=== PATIENT | female | born 1935 | race Caucasian/White ===

== ENCOUNTER 2019-04-17 14:28 | Outpatient (CLI) | payer MEDICARE ==
--- NOTE | 2019-04-17 14:56 | RAD ---
XR Finger(s) Lt Min 2 View HISTORY: Pain in the left middle finger COMPARISON: None. 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 No acute fracture, dislocation or periosteal r eaction is seen. IMPRESSION: No acute process.
== END 2019-04-17 14:29 | disposition home or self-care (01) ==
LOC: BICRAD 14:28
PROVIDERS: ATTEND Physician Assistant
DX: M79.645 Pain in left finger(s) (principal)

== ENCOUNTER 2019-04-23 15:05 | Outpatient (CLI) | payer MEDICARE ==
--- NOTE | 2019-04-23 15:20 | RAD ---
EXAM: Chest 2 views: HISTORY: Cough and dyspnea COMPARISON: 06/15/2018 FINDINGS: There is an enlarged but stable cardiomediastinal silhouette. There is no evidence of consolidation, mass, or pleural effusion. The bones are unremarkable. IMPRESSION: No evidence of acute cardiopulmonary disease
== END 2019-04-23 15:06 | disposition home or self-care (01) ==
LOC: BICRAD 15:05
PROVIDERS: ATTEND Physician Assistant
DX: R05 Cough (principal)
CPT/HCPCS: 71046

== ENCOUNTER 2019-04-30 09:41 | Outpatient (CLI) | payer MEDICARE ==
[2019-04-30 14:16] LABS: Hemoglobin 14.9 g/dL (12.0-16.0); Mean Corpuscular HGB CONC 33.5 g/dL (32.0-36.0); Mean Corpuscular Hemoglobin 28.8 pg (27.0-31.0); Mean Corpuscular Volume 86.1 fL (78.0-98.0); Mean Platelet Volume 8.5 fL (7.4-10.4); Platelet Count 235 thou/uL (130-400); RBC Distribution Width 12.2 % (11.5-14.5); Red Blood Cell (RBC) Count 5.18 mill/uL (4.20-5.40); White Blood Cell (WBC) Count 6.6 thou/uL (4.8-10.8)
[2019-04-30 14:23] LABS: PTT 26.7 SEC (22.9-36.1)
[2019-04-30 14:24] LABS: Prothrombin Time 13.4 SEC (12.0-14.7)
[2019-04-30 14:37] LABS: Anion Gap 13 mmol/L (10-20); BUN (Urea Nitrogen) 17 mg/dL (9.8-20.1); Calc. Creatinine Clearance 0 mL/min (70-130); Calcium 9.5 mg/dL (7.8-10.44); Carbon Dioxide 27 mmol/L (23-31); Chloride 104 mmol/L (98-107); Estimated GFR-MDRD 49; Glucose 133 mg/dL (83-110); Potassium 4.7 mmol/L (3.5-5.1); Sodium 139 mmol/L (136-145)
--- NOTE | 2019-05-06 18:40 | EKG ---
Test Reason : Blood Pressure : / mmHG Vent. Rate : 079 BPM Atrial Rate : 079 BPM P-R Int : 232 ms QRS Dur : 150 ms QT Int : 426 ms P-R-T Axes : 059 -46 066 degrees QTc Int : 488 ms Sinus rhythm with 1st degree A-V block Left axis deviation Left bundle branch block Abnormal ECG When compared with ECG of 18-OCT-2004 10:58, NV interval has increased Confirmed by HEYDI ESCOBAR, . SLouie ([id number]) on 05/06/2019 6:39:46 PM Referred By: CLAUDE Confirmed By:DR. Benitez SOLIZ MD
== END 2019-04-30 09:42 | disposition home or self-care (01) ==
LOC: LABBT 09:41
PROVIDERS: ATTEND Internal Medicine Cardiovascular Disease
DX: Z01.818 Encounter for other preprocedural examination (principal); I50.9 Heart failure, unspecified
CPT/HCPCS: 80048; 85027; 85610; 85730; 93005; 93010

== ENCOUNTER 2019-12-06 11:10 | Outpatient (CLI) | payer MEDICARE ==
[~2019-12-06 11:10] MED LIST: Magnevist 469MG/ML 20 ML VIAL ONE
--- NOTE | 2019-12-06 13:52 | MRI ---
LUMBAR SPINE MRI WITH AND WITHOUT CONTRAST: HISTORY: Lumbar stenosis with claudication. History of surgery. Patient has had multiple falls with right leg and chronic low back pain. FINDINGS: Redemonstration of dextroscoliosis of the lumbar spine. There are type II Modic changes at the L2-L3, L3-L4, L4-L5 levels. Additional type II Modic changes at T9-T10, T10-T11. There are also type I Modic changes along the right aspect of the disc space at T10-T11. There is leftward curvature of the distal thoracic spine. Incidental hemangioma at L3. With regards to the lumbar vertebrae, no significant STIR hyperintensity to suggest vertebral body ed greta or ligamentous injury. Appropriate signal intensity in the visualized paraspinal muscles and solid organs. There is evidence of muscular atrophy. Conus medullaris terminates at the inferior aspect of L1. Postcontrast: There is no abnormal enhancement with regards to the vertebral bodies or disc spaces. T here is no abnormal enhancement within the thecal sac including the cauda equina and conus medullaris. L3 vertebral body hemangioma. T9-T10: Desiccation with moderate loss of disc space height. At least moderate central canal stenosis . Limited evaluation on the sagittal images. T10-T11: Desiccation with moderate loss of disc space height. There is a right subareolar disc hernia tion. There is severe right and moderate left foraminal narrowing. Evaluation is incomplete on this exam. T11-T12: Adequate disc hydration. Mild broad-based disc bulge. Mild central canal stenosis. Mild to m oderate bilateral neural foraminal narrowing. T12-L1: Disc desiccation with mild loss of disc space height. Broad-based disc bulge with a left suba rticular component. Mild central canal stenosis. Mild right and moderate left neural foraminal narrowing. L1-L2: Disc desiccation with mild loss of disc space height. Broad-based disc bulge, ligament flavum thickening and facet hypertrophy result in mild central canal stenosis. Mild to moderate bilateral neural foraminal narrowing. L1-2-L3: Disc desiccation with severe loss of disc space height. Broad-based disc bulge, ligament fla vum thickening and facet hypertrophy result in mild to moderate central canal stenosis. Severe right and moderate left neural foraminal narrowing. L3-L4: Disc desiccation with moderate to severe loss of disc space height. Broad-based disc-osteophyt e complex abuts the thecal sac. There is bilateral facet hypertrophy with mild to moderate central canal stenosis. Moderate to severe right and moderate left neural foraminal narrowing. L4-L5: Disc desiccation with moderate loss of disc space height. Broad-based disc bulge, and facet hy pertrophy result in moderate central canal stenosis. Severe narrowing of the left subarticular zone secondary to disc material and posterior element hypertrophy. Near complete obscuration the traversin g left L5 nerve root. There is bilateral facet hypertrophy. Moderate bilateral neural foraminal narrowing. L5-S1: Adequate disc hydration. Broad-based disc bulge, facet hypertrophy result in narrowing of both subarticular zones partial obscuration bilateral traversing S1 nerve roots. Stenosis of the thecal sac is due to posterior element hypertrophy and anterior epidural lipomatosis. There is a left hemila minotomy defect with enhancing scar tissue at the operative site. Impression 1. Redemonstration of a leftward scoliosis of the distal thoracic spine and rightward scoliosis of th e lumbar spine. 2. Multilevel type II Modic changes with type I Modic changes at T10-T11. 3. Varying degrees of central canal stenosis and neural foraminal narrowing due to degenerative rodriguez e. No abnormal enhancement with regards to the vertebral bodies or within the thecal sac. Transcribed Date/Time: 12/06/2019 2:07 PM
== END 2019-12-06 11:11 | disposition home or self-care (01) ==
LOC: MRI 11:10
PROVIDERS: ATTEND Neurological Surgery
DX: M48.062 Spinal stenosis, lumbar region with neurogenic claudication (principal); M54.5 Low back pain; M41.9 Scoliosis, unspecified; M47.816 Spondylosis without myelopathy or radiculopathy, lumbar region
CPT/HCPCS: 72158; 82565; A9579

== ENCOUNTER 2021-12-01 11:16 | Emergency (ER) | payer MEDICARE, OTHER ==
[2021-12-01 14:47] LABS: #Eosinphils 0.1 thou/uL (0.0-0.7); #Lymphocytes 1.7 thou/uL (1.20-3.40); #Neutrophils 10.4 thou/uL (1.40-6.50); %Basophils 0.3 % (0.0-1.0); %Eosinophils 0.5 % (0.0-10.0); %Lymphocytes 13.1 % (21.0-51.0); %Monocytes 7.8 % (0.0-10.0); %Neutrophils 78.3 % (42.0-75.0); Hemoglobin 16.6 g/dL (12.0-16.0); Mean Corpuscular HGB CONC 32.6 g/dL (32.0-36.0); Mean Corpuscular Hemoglobin 29.3 pg (27.0-31.0); Mean Corpuscular Volume 89.7 fL (78.0-98.0); Mean Platelet Volume 9.1 fL (7.4-10.4); Platelet Count 244 thou/uL (130-400); RBC Distribution Width 13.2 % (11.5-14.5); Red Blood Cell (RBC) Count 5.66 mill/uL (4.20-5.40); White Blood Cell (WBC) Count 13.3 thou/uL (4.8-10.8)
[2021-12-01 14:55] LABS: Prothrombin Time 13.2 sec (12.0-14.7)
[2021-12-01 14:56] LABS: PTT 28.8 sec (22.9-36.1)
[2021-12-01 15:06] LABS: ALT (SGPT) 20 U/L (8-55); AST (SGOT) 17 U/L (5-34); Albumin 4.3 g/dL (3.4-4.8); Alkaline Phosphatase 102 U/L (40-110); Anion Gap 14 mmol/L (10-20); BUN (Urea Nitrogen) 20 mg/dL (9.8-20.1); Bilirubin, Total 0.7 mg/dL (0.2-1.2); Calc. Creatinine Clearance 0 mL/min (70-130); Carbon Dioxide 27 mmol/L (23-31); Chloride 103 mmol/L (98-107); Estimated GFR 41; Globulin 3.3 g/dL (2.4-3.5); Glucose 144 mg/dL (83-110); Lipase 19 U/L (8-78); Potassium 3.9 mmol/L (3.5-5.1); Protein, Total 7.6 g/dL (5.8-8.1); Sodium 140 mmol/L (136-145)
== END 2021-12-01 16:17 | disposition home or self-care (01) ==
LOC: ERS 11:16
DX: K64.4 Residual hemorrhoidal skin tags (principal); K64.8 Other hemorrhoids; K62.5 Hemorrhage of anus and rectum; T47.6X5A Adverse effect of antidiarrheal drugs, initial encounter; I10 Essential (primary) hypertension; K21.9 Gastro-esophageal reflux disease without esophagitis; E03.9 Hypothyroidism, unspecified
CPT/HCPCS: 36415; 74176; 80053; 83690; 85025; 85610; 85730; 86850; 86900; 86901; 93005; 96360

== ENCOUNTER 2022-03-15 12:44 | Inpatient (IN) | payer OTHER ==
[2022-03-15] MEDS ORDERED: Vancomycin 1 GM/200 ML (FROZEN) BAG ONE (15:32)
[2022-03-15 15:43] LABS: #Eosinphils 0.1 thou/uL (0.0-0.7); #Lymphocytes 1.2 thou/uL (1.20-3.40); #Monocytes 1.1 thou/uL (0.11-0.59); #Neutrophils 6.7 thou/uL (1.40-6.50); %Basophils 0.2 % (0.0-1.0); %Eosinophils 1.5 % (0.0-10.0); %Lymphocytes 13.5 % (21.0-51.0); %Neutrophils 72.8 % (42.0-75.0); Mean Corpuscular HGB CONC 32.8 g/dL (32.0-36.0); Mean Corpuscular Hemoglobin 29.8 pg (27.0-31.0); Mean Corpuscular Volume 90.7 fl (78.0-98.0); Mean Platelet Volume 8.5 fL (7.4-10.4); Platelet Count 191 10x3/uL (130-400); RBC Distribution Width 12.3 % (11.5-14.5); Red Blood Cell (RBC) Count 4.37 mill/uL (4.20-5.40); White Blood Cell (WBC) Count 9.2 10x3/uL (4.8-10.8)
[2022-03-15 16:03] LABS: ALT (SGPT) 14 U/L (8-55); AST (SGOT) 15 U/L (5-34); Albumin 3.4 g/dL (3.4-4.8); Alkaline Phosphatase 83 U/L (40-110); Anion Gap 11 mmol/L (10-20); BUN (Urea Nitrogen) 20 mg/dL (9.8-20.1); Bilirubin, Total 0.6 mg/dL (0.2-1.2); Calc. Creatinine Clearance 0 mL/min (70-130); Calcium 8.9 mg/dL (7.8-10.44); Carbon Dioxide 28 mmol/L (23-31); Chloride 97 mmol/L (98-107); Estimated GFR 32; Globulin 2.8 g/dL (2.4-3.5); Glucose 124 mg/dL (83-110); Magnesium 1.7 mg/dL (1.6-2.6); Potassium 3.8 mmol/L (3.5-5.1); Protein, Total 6.2 g/dL (5.8-8.1); Sodium 132 mmol/L (136-145)
[2022-03-15 16:22] LABS: SARS-CoV-2 NAA Rapid Test Not Detected (NotDetected)
[2022-03-15] MEDS ORDERED: Acetaminophen 650 MG Suppository PR PRN (17:23)
[2022-03-15] MEDS ORDERED: Ondansetron ODT 4 MG TAB PO PRN (17:23)
[2022-03-15] MEDS: Sodium Chloride 0.9% 1,000 ML IV SCH (17:30)
[2022-03-15] MEDS ORDERED: Sacubitril 49 MG/Valsartan 51 MG TABLET PO SCH (21:00)
[2022-03-15] MEDS ORDERED: Piperacillin/Tazobactam 3.375 GM in Sodium Chloride 0.9% 100 ML IVPB SCH (21:15)
[2022-03-15 21:27] VITALS: BMI 35.6
[2022-03-15] MEDS: Heparin 5,000 UNITS/ML VIAL SC SCH (21:57)
[2022-03-15] MEDS ORDERED: Vancomycin 1 GM in Premix Bag 1 BAG IVPB SCH (22:30)
[2022-03-16] MEDS: Piperacillin/Tazobactam 3.375 GM in Sodium Chloride 0.9% 100 ML IVPB SCH ×2 (02:45→09:51)
[2022-03-16] MEDS: Sodium Chloride 0.9% 1,000 ML IV SCH ×2 (03:00→13:00)
[2022-03-16] MEDS ORDERED: GUAIFENESIN SF SOLN 200 MG/10 ML UDCUP PO SCH (06:00)
[2022-03-16] MEDS ORDERED: Gabapentin 100 MG CAP PO PRN (08:16)
[2022-03-16] MEDS ORDERED: Spironolactone 25 MG TAB PO SCH (09:00)
[2022-03-16] MEDS: Heparin 5,000 UNITS/ML VIAL SC SCH ×2 (09:48→20:33)
[2022-03-16] MEDS: Levothyroxine 150 MCG TAB PO SCH (09:48)
[2022-03-16] MEDS: Fluconazole 100 MG TAB PO SCH (09:48)
[2022-03-16] MEDS: Atorvastatin Calcium 20 MG TAB PO SCH (09:51)
[2022-03-16 10:09] LABS: Anion Gap 13 mmol/L (10-20); BUN (Urea Nitrogen) 22 mg/dL (9.8-20.1); Calc. Creatinine Clearance 42 mL/min (70-130); Calcium 8.5 mg/dL (7.8-10.44); Carbon Dioxide 24 mmol/L (23-31); Chloride 103 mmol/L (98-107); Estimated GFR 31; Glucose 135 mg/dL (83-110); Potassium 3.7 mmol/L (3.5-5.1); Sodium 136 mmol/L (136-145)
[2022-03-16 10:13] LABS: #Eosinphils 0.3 thou/uL (0.0-0.7); #Lymphocytes 1.2 thou/uL (1.20-3.40); #Monocytes 0.8 thou/uL (0.11-0.59); #Neutrophils 5.1 thou/uL (1.40-6.50); %Basophils 0.3 % (0.0-1.0); %Eosinophils 3.7 % (0.0-10.0); %Lymphocytes 15.8 % (21.0-51.0); %Monocytes 11.2 % (0.0-10.0); %Neutrophils 69.1 % (42.0-75.0); Hemoglobin 12.1 g/dL (12.0-16.0); Mean Corpuscular HGB CONC 33.7 g/dL (32.0-36.0); Mean Corpuscular Hemoglobin 30.5 pg (27.0-31.0); Mean Corpuscular Volume 90.5 fl (78.0-98.0); Mean Platelet Volume 8.5 fL (7.4-10.4); Platelet Count 160 10x3/uL (130-400); RBC Distribution Width 12.3 % (11.5-14.5); Red Blood Cell (RBC) Count 3.98 mill/uL (4.20-5.40); White Blood Cell (WBC) Count 7.4 10x3/uL (4.8-10.8)
[2022-03-16] MEDS ORDERED: traMADol HCl 50 MG TAB PO PRN (10:13)
[2022-03-16] MEDS: Ondansetron PF 4 MG/2 ML Vial IVP PRN (11:56)
[2022-03-16] MEDS ORDERED: Vancomycin 1 GM in Premix Bag 1 BAG IVPB SCH (16:00)
[2022-03-16] MEDS: Amitriptyline HCl 100 MG TAB PO SCH (20:34)
[2022-03-16] MEDS ORDERED: Non-Formulary Item 1 EACH (Omeprazole [Omeprazole] 20 MG Capsule.Dr) PO SCH (21:00)
[2022-03-17] MEDS: Sodium Chloride 0.9% 1,000 ML IV SCH (02:50)
[2022-03-17 07:10] LABS: #Eosinphils 0.2 thou/uL (0.0-0.7); #Monocytes 0.8 thou/uL (0.11-0.59); #Neutrophils 6.2 thou/uL (1.40-6.50); %Basophils 0.1 % (0.0-1.0); %Eosinophils 2.8 % (0.0-10.0); %Lymphocytes 12.2 % (21.0-51.0); %Monocytes 10.1 % (0.0-10.0); %Neutrophils 74.9 % (42.0-75.0); Mean Corpuscular HGB CONC 33.1 g/dL (32.0-36.0); Mean Corpuscular Hemoglobin 30.7 pg (27.0-31.0); Mean Corpuscular Volume 92.7 fl (78.0-98.0); Mean Platelet Volume 8.2 fL (7.4-10.4); Platelet Count 182 10x3/uL (130-400); RBC Distribution Width 12.1 % (11.5-14.5); Red Blood Cell (RBC) Count 3.91 mill/uL (4.20-5.40); White Blood Cell (WBC) Count 8.3 10x3/uL (4.8-10.8)
[2022-03-17 07:28] LABS: Anion Gap 13 mmol/L (10-20); BUN (Urea Nitrogen) 12 mg/dL (9.8-20.1); Calc. Creatinine Clearance 64 mL/min (70-130); Calcium 8.4 mg/dL (7.8-10.44); Carbon Dioxide 22 mmol/L (23-31); Chloride 109 mmol/L (98-107); Estimated GFR 52; Glucose 88 mg/dL (83-110); Potassium 3.8 mmol/L (3.5-5.1); Sodium 140 mmol/L (136-145)
[2022-03-17] MEDS: Ondansetron PF 4 MG/2 ML Vial IVP PRN ×2 (07:58→13:22)
[2022-03-17] MEDS: Polyethylene Glycol 3350 17 GM Packet PO SCH (10:44)
[2022-03-17] MEDS: Heparin 5,000 UNITS/ML VIAL SC SCH ×2 (10:45→20:24)
[2022-03-17] MEDS: Levothyroxine 150 MCG TAB PO SCH (10:46)
[2022-03-17] MEDS: Nystatin Powder 15 GM BOT TOP PRN (10:46)
[2022-03-17] MEDS: Atorvastatin Calcium 20 MG TAB PO SCH (10:46)
[2022-03-17] MEDS: Fluconazole 100 MG TAB PO SCH (10:46)
[2022-03-17] MEDS ORDERED: methylPREDNISolone Sod Succ 40 MG VIAL IVP SCH (11:00)
[2022-03-17] MEDS ORDERED: Cephalexin 250 MG CAP PO SCH (13:00)
[2022-03-17] MEDS: diphenhydrAMINE 25 MG CAP PO SCH ×2 (13:22→20:24)
[2022-03-17] MEDS: methylPREDNISolone Sod Succ 40 MG VIAL IVP SCH ×3 (14:03→21:06)
[2022-03-17] MEDS: Carvedilol 3.125 MG TAB PO SCH (16:23)
[2022-03-17] MEDS: Doxycycline 100 MG CAP PO SCH (20:24)
[2022-03-17] MEDS: Amitriptyline HCl 100 MG TAB PO SCH (20:24)
[2022-03-18] MEDS: Acetaminophen 325 MG TAB PO PRN ×2 (01:55→17:45)
[2022-03-18] MEDS: methylPREDNISolone Sod Succ 40 MG VIAL IVP SCH ×4 (05:09→20:40)
[2022-03-18 07:13] LABS: #Lymphocytes 1.2 thou/uL (1.20-3.40); #Monocytes 0.4 thou/uL (0.11-0.59); #Neutrophils 10.3 thou/uL (1.40-6.50); %Eosinophils 0.1 % (0.0-10.0); %Lymphocytes 9.7 % (21.0-51.0); %Monocytes 3.2 % (0.0-10.0); %Neutrophils 87.1 % (42.0-75.0); Hemoglobin 11.6 g/dL (12.0-16.0); Mean Corpuscular Hemoglobin 30.4 pg (27.0-31.0); Mean Platelet Volume 8.3 fL (7.4-10.4); Platelet Count 204 10x3/uL (130-400); RBC Distribution Width 12.1 % (11.5-14.5); Red Blood Cell (RBC) Count 3.83 mill/uL (4.20-5.40); White Blood Cell (WBC) Count 11.9 10x3/uL (4.8-10.8)
[2022-03-18 07:42] LABS: Anion Gap 12 mmol/L (10-20); BUN (Urea Nitrogen) 12 mg/dL (9.8-20.1); Calc. Creatinine Clearance 63 mL/min (70-130); Calcium 8.7 mg/dL (7.8-10.44); Carbon Dioxide 21 mmol/L (23-31); Chloride 104 mmol/L (98-107); Estimated GFR 50; Glucose 170 mg/dL (83-110); Potassium 3.8 mmol/L (3.5-5.1); Sodium 133 mmol/L (136-145)
[2022-03-18] MEDS: Polyethylene Glycol 3350 17 GM Packet PO SCH (08:18)
[2022-03-18] MEDS: Heparin 5,000 UNITS/ML VIAL SC SCH ×2 (08:19→20:40)
[2022-03-18] MEDS: diphenhydrAMINE 25 MG CAP PO SCH ×3 (08:19→20:40)
[2022-03-18] MEDS: Doxycycline 100 MG CAP PO SCH ×2 (08:19→20:40)
[2022-03-18] MEDS: Levothyroxine 150 MCG TAB PO SCH (08:20)
[2022-03-18] MEDS: Atorvastatin Calcium 20 MG TAB PO SCH (08:20)
[2022-03-18] MEDS: Fluconazole 100 MG TAB PO SCH (08:20)
[2022-03-18] MEDS: Carvedilol 3.125 MG TAB PO SCH ×3 (08:20→17:42)
[2022-03-18] MEDS: Amitriptyline HCl 100 MG TAB PO SCH (20:40)
[2022-03-18] MEDS: Guaifenesin DM 100-10/5 ML UDCUP PO PRN (21:15)
[2022-03-19] MEDS: methylPREDNISolone Sod Succ 40 MG VIAL IVP SCH ×4 (05:08→21:28)
[2022-03-19 06:48] LABS: #Eosinphils 0.1 thou/uL (0.0-0.7); #Lymphocytes 1.6 thou/uL (1.20-3.40); #Monocytes 0.9 thou/uL (0.11-0.59); #Neutrophils 10.1 thou/uL (1.40-6.50); %Eosinophils 0.7 % (0.0-10.0); %Lymphocytes 12.4 % (21.0-51.0); %Monocytes 7.3 % (0.0-10.0); %Neutrophils 79.5 % (42.0-75.0); Hemoglobin 11.3 g/dL (12.0-16.0); Mean Corpuscular HGB CONC 33.7 g/dL (32.0-36.0); Mean Corpuscular Hemoglobin 30.8 pg (27.0-31.0); Mean Corpuscular Volume 91.4 fl (78.0-98.0); Platelet Count 208 10x3/uL (130-400); RBC Distribution Width 12.1 % (11.5-14.5); Red Blood Cell (RBC) Count 3.66 mill/uL (4.20-5.40); White Blood Cell (WBC) Count 12.7 10x3/uL (4.8-10.8)
[2022-03-19 07:12] LABS: Anion Gap 11 mmol/L (10-20); BUN (Urea Nitrogen) 14 mg/dL (9.8-20.1); Calc. Creatinine Clearance 59 mL/min (70-130); Calcium 8.7 mg/dL (7.8-10.44); Carbon Dioxide 23 mmol/L (23-31); Chloride 103 mmol/L (98-107); Estimated GFR 46; Glucose 80 mg/dL (83-110); Potassium 3.6 mmol/L (3.5-5.1); Sodium 133 mmol/L (136-145)
[2022-03-19] MEDS: Fluconazole 100 MG TAB PO SCH (08:42)
[2022-03-19] MEDS: Polyethylene Glycol 3350 17 GM Packet PO SCH (08:42)
[2022-03-19] MEDS: Heparin 5,000 UNITS/ML VIAL SC SCH ×2 (08:42→21:17)
[2022-03-19] MEDS: Atorvastatin Calcium 20 MG TAB PO SCH (08:43)
[2022-03-19] MEDS: Levothyroxine 150 MCG TAB PO SCH (08:43)
[2022-03-19] MEDS: Carvedilol 3.125 MG TAB PO SCH ×2 (08:43→16:40)
[2022-03-19] MEDS: Doxycycline 100 MG CAP PO SCH ×2 (08:43→21:17)
[2022-03-19] MEDS: diphenhydrAMINE 25 MG CAP PO SCH ×3 (08:43→21:17)
[2022-03-19] MEDS: Guaifenesin DM 100-10/5 ML UDCUP PO PRN (14:42)
[2022-03-19] MEDS: Amitriptyline HCl 100 MG TAB PO SCH (21:36)
[2022-03-20] MEDS: methylPREDNISolone Sod Succ 40 MG VIAL IVP SCH ×3 (05:18→20:43)
[2022-03-20 06:46] LABS: #Eosinphils 0.3 thou/uL (0.0-0.7); #Lymphocytes 1.4 thou/uL (1.20-3.40); #Monocytes 0.8 thou/uL (0.11-0.59); #Neutrophils 8.4 thou/uL (1.40-6.50); %Eosinophils 2.4 % (0.0-10.0); %Lymphocytes 12.7 % (21.0-51.0); %Monocytes 7.7 % (0.0-10.0); %Neutrophils 77.2 % (42.0-75.0); Hemoglobin 11.8 g/dL (12.0-16.0); Mean Corpuscular HGB CONC 32.5 g/dL (32.0-36.0); Mean Corpuscular Hemoglobin 29.5 pg (27.0-31.0); Mean Corpuscular Volume 90.7 fl (78.0-98.0); Mean Platelet Volume 7.6 fL (7.4-10.4); Platelet Count 218 10x3/uL (130-400); RBC Distribution Width 12.3 % (11.5-14.5); Red Blood Cell (RBC) Count 4.01 mill/uL (4.20-5.40); White Blood Cell (WBC) Count 10.8 10x3/uL (4.8-10.8)
[2022-03-20 07:05] LABS: Anion Gap 10 mmol/L (10-20); BUN (Urea Nitrogen) 10 mg/dL (9.8-20.1); Calc. Creatinine Clearance 67 mL/min (70-130); Calcium 8.6 mg/dL (7.8-10.44); Carbon Dioxide 25 mmol/L (23-31); Chloride 104 mmol/L (98-107); Estimated GFR 54; Glucose 86 mg/dL (83-110); Potassium 3.4 mmol/L (3.5-5.1); Sodium 136 mmol/L (136-145)
[2022-03-20] MEDS: Doxycycline 100 MG CAP PO SCH ×2 (08:36→20:43)
[2022-03-20] MEDS: diphenhydrAMINE 25 MG CAP PO SCH ×3 (08:36→20:43)
[2022-03-20] MEDS: Levothyroxine 150 MCG TAB PO SCH (08:36)
[2022-03-20] MEDS: Polyethylene Glycol 3350 17 GM Packet PO SCH (08:36)
[2022-03-20] MEDS: Heparin 5,000 UNITS/ML VIAL SC SCH ×3 (08:36→20:49)
[2022-03-20] MEDS: Atorvastatin Calcium 20 MG TAB PO SCH (08:36)
[2022-03-20] MEDS: Carvedilol 3.125 MG TAB PO SCH ×2 (08:37→16:29)
[2022-03-20] MEDS: Fluconazole 100 MG TAB PO SCH (08:37)
[2022-03-20] MEDS: Guaifenesin DM 100-10/5 ML UDCUP PO PRN (14:18)
[2022-03-20] MEDS: Amitriptyline HCl 100 MG TAB PO SCH (20:43)
[2022-03-21] MEDS: Guaifenesin DM 100-10/5 ML UDCUP PO PRN ×2 (01:15→14:06)
[2022-03-21] MEDS: methylPREDNISolone Sod Succ 40 MG VIAL IVP SCH (04:32)
[2022-03-21] MEDS ORDERED: diphenhydrAMINE 25 MG CAP PO PRN (07:36)
[2022-03-21] MEDS: Atorvastatin Calcium 20 MG TAB PO SCH (09:17)
[2022-03-21] MEDS: Fluconazole 100 MG TAB PO SCH (09:17)
[2022-03-21] MEDS: Doxycycline 100 MG CAP PO SCH ×2 (09:17→20:54)
[2022-03-21] MEDS: Levothyroxine 150 MCG TAB PO SCH (09:17)
[2022-03-21] MEDS: predniSONE 20 MG TAB PO SCH (09:17)
[2022-03-21] MEDS: Heparin 5,000 UNITS/ML VIAL SC SCH ×2 (09:18→20:54)
[2022-03-21] MEDS: Polyethylene Glycol 3350 17 GM Packet PO SCH (09:18)
[2022-03-21] MEDS: Carvedilol 3.125 MG TAB PO SCH ×2 (09:18→18:12)
[2022-03-21] MEDS ORDERED: Loperamide HCl 2 MG CAP PO PRN (09:25)
[2022-03-21] MEDS ORDERED: Spironolactone 25 MG TAB PO SCH (13:00)
[2022-03-21] MEDS: Amitriptyline HCl 100 MG TAB PO SCH (20:54)
[2022-03-22] MEDS: Furosemide 40 MG/4 ML VIAL SLOW IVP SCH ×2 (05:20→13:48)
[2022-03-22 08:17] LABS: #Eosinphils 0.3 thou/uL (0.0-0.7); #Lymphocytes 1.3 thou/uL (1.20-3.40); #Monocytes 0.8 thou/uL (0.11-0.59); #Neutrophils 9.6 thou/uL (1.40-6.50); %Basophils 0.1 % (0.0-1.0); %Eosinophils 2.4 % (0.0-10.0); %Monocytes 6.3 % (0.0-10.0); %Neutrophils 80.3 % (42.0-75.0); Hemoglobin 12.5 g/dL (12.0-16.0); Mean Corpuscular Hemoglobin 29.9 pg (27.0-31.0); Mean Corpuscular Volume 90.7 fl (78.0-98.0); Mean Platelet Volume 7.6 fL (7.4-10.4); Platelet Count 232 10x3/uL (130-400); RBC Distribution Width 12.2 % (11.5-14.5); Red Blood Cell (RBC) Count 4.18 mill/uL (4.20-5.40); White Blood Cell (WBC) Count 11.9 10x3/uL (4.8-10.8)
[2022-03-22 08:34] LABS: ALT (SGPT) 27 U/L (8-55); AST (SGOT) 20 U/L (5-34); Albumin 3.3 g/dL (3.4-4.8); Alkaline Phosphatase 76 U/L (40-110); Anion Gap 13 mmol/L (10-20); BUN (Urea Nitrogen) 6 mg/dL (9.8-20.1); Bilirubin, Total 0.6 mg/dL (0.2-1.2); Calc. Creatinine Clearance 63 mL/min (70-130); Calcium 8.7 mg/dL (7.8-10.44); Carbon Dioxide 28 mmol/L (23-31); Chloride 100 mmol/L (98-107); Estimated GFR 51; Globulin 2.5 g/dL (2.4-3.5); Glucose 112 mg/dL (83-110); Potassium 3.4 mmol/L (3.5-5.1); Protein, Total 5.8 g/dL (5.8-8.1); Sodium 138 mmol/L (136-145)
[2022-03-22] MEDS: Carvedilol 3.125 MG TAB PO SCH ×2 (08:49→16:38)
[2022-03-22] MEDS: Potassium Chloride 20 MEQ TAB PO SCH ×2 (08:50→16:39)
[2022-03-22] MEDS: Spironolactone 25 MG TAB PO SCH (08:50)
[2022-03-22] MEDS: predniSONE 20 MG TAB PO SCH (08:50)
[2022-03-22] MEDS: Levothyroxine 150 MCG TAB PO SCH (08:51)
[2022-03-22] MEDS: Doxycycline 100 MG CAP PO SCH ×2 (08:51→21:02)
[2022-03-22] MEDS: Heparin 5,000 UNITS/ML VIAL SC SCH ×2 (08:51→21:02)
[2022-03-22] MEDS: Atorvastatin Calcium 20 MG TAB PO SCH (08:51)
[2022-03-22] MEDS: Guaifenesin DM 100-10/5 ML UDCUP PO PRN (11:27)
[2022-03-22] MEDS: Nystatin Powder 15 GM BOT TOP PRN (11:30)
[2022-03-22] MEDS ORDERED: Potassium Chloride 20 MEQ TAB PO SCH ×2 (12:45)
[2022-03-22] MEDS: Amitriptyline HCl 100 MG TAB PO SCH (21:01)
[2022-03-23] MEDS: Furosemide 40 MG/4 ML VIAL SLOW IVP SCH (05:32)
[2022-03-23 07:11] LABS: Anion Gap 13 mmol/L (10-20); BUN (Urea Nitrogen) 11 mg/dL (9.8-20.1); Calc. Creatinine Clearance 55 mL/min (70-130); Calcium 8.6 mg/dL (7.8-10.44); Carbon Dioxide 29 mmol/L (23-31); Chloride 99 mmol/L (98-107); Estimated GFR 43; Glucose 102 mg/dL (83-110); Potassium 3.6 mmol/L (3.5-5.1); Sodium 137 mmol/L (136-145)
[2022-03-23] MEDS: Atorvastatin Calcium 20 MG TAB PO SCH (07:48)
[2022-03-23] MEDS: Levothyroxine 150 MCG TAB PO SCH (07:48)
[2022-03-23] MEDS: Spironolactone 25 MG TAB PO SCH (07:48)
[2022-03-23] MEDS: Potassium Chloride 20 MEQ TAB PO SCH (07:48)
[2022-03-23] MEDS: Carvedilol 3.125 MG TAB PO SCH (07:49)
[2022-03-23] MEDS: predniSONE 20 MG TAB PO SCH (07:49)
[2022-03-23] MEDS: Heparin 5,000 UNITS/ML VIAL SC SCH (07:49)
[2022-03-23] MEDS: Doxycycline 100 MG CAP PO SCH (07:49)
[2022-03-23 08:33] VITALS: BP 128/79; TEMP 98.3
== END 2022-03-23 12:20 | disposition home or self-care (01) | DRG 871 ==
LOC: ERS 12:44 → ERHOLD 16:30 → T4-B 20:05
PROVIDERS: ADMIT Family Medicine; ATTEND Internal Medicine
DX: A41.9 Sepsis, unspecified organism (principal); I50.23 Acute on chronic systolic (congestive) heart failure; L03.314 Cellulitis of groin; N17.9 Acute kidney failure, unspecified; I13.0 Hypertensive heart and chronic kidney disease with heart failure and stage 1 through stage 4 chronic kidney disease, or unspecified chronic kidney disease; E78.5 Hyperlipidemia, unspecified; K21.9 Gastro-esophageal reflux disease without esophagitis; E03.9 Hypothyroidism, unspecified; N18.9 Chronic kidney disease, unspecified; E66.9 Obesity, unspecified; J06.9 Acute upper respiratory infection, unspecified; L30.4 Erythema intertrigo; B97.89 Other viral agents as the cause of diseases classified elsewhere; L27.0 Generalized skin eruption due to drugs and medicaments taken internally; E87.6 Hypokalemia; T36.0X5A Adverse effect of penicillins, initial encounter; Z88.8 Allergy status to other drugs, medicaments and biological substances; Z68.35 Body mass index [BMI] 35.0-35.9, adult; Z91.041 Radiographic dye allergy status; Z79.899 Other long term (current) drug therapy; Z20.822 Contact with and (suspected) exposure to COVID-19
CPT/HCPCS: 36415; 80048; 80053; 83605; 83735; 83880; 84443; 84484; 85025; 87040; 87633; 87811; 93005; 93010; 93306; 94640; 96365; 97139; J1644; J1940; J2405; J2543; J2920; J3370; J3370-JW; J3490; J7050; J7512; J7620

== ENCOUNTER 2022-12-20 11:19 | Outpatient (CLI) | payer OTHER | END 2022-12-20 11:20 | disposition home or self-care (01) | LOC: BICRAD 11:19 | PROVIDERS: ATTEND Specialist | DX: Z95.0 Presence of cardiac pacemaker (principal) | CPT/HCPCS: 71046 ==

== ENCOUNTER 2022-12-22 09:13 | Outpatient (CLI) | payer OTHER | END 2022-12-22 09:14 | disposition home or self-care (01) | LOC: MRI 09:13 | PROVIDERS: ATTEND Specialist | DX: M48.02 Spinal stenosis, cervical region (principal); M50.31 Other cervical disc degeneration, high cervical region; M50.321 Other cervical disc degeneration at C4-C5 level; M50.322 Other cervical disc degeneration at C5-C6 level; M50.323 Other cervical disc degeneration at C6-C7 level | CPT/HCPCS: 72141 ==